=== PATIENT | female | born 1960 | race Two or more races ===

== ENCOUNTER 2025-07-09 08:48 | Outpatient (CLI) | payer OTHER | END 2025-07-09 08:49 | disposition home or self-care (01) | LOC: ULT 08:48 | PROVIDERS: ATTEND Internal Medicine | DX: R10.11 Right upper quadrant pain (principal); Z87.19 Personal history of other diseases of the digestive system; K76.0 Fatty (change of) liver, not elsewhere classified; Z90.49 Acquired absence of other specified parts of digestive tract | CPT/HCPCS: 76705 ==